=== PATIENT | female | born 1970 | race American Indian/Alaskan Native ===

== ENCOUNTER 2017-08-09 19:42 | Emergency (ER) | payer BC, OTHER ==
[2017-08-09 20:20] VITALS: O2SAT 100; BMI 30.9
[2017-08-09] MEDS ORDERED: Sodium Chloride 0.9% 1,000 ML IV STA (20:23)
--- NOTE | 2017-08-09 20:26 | ED PDOC ---
Arrival/HPI - General Chief Complaint: Back Pain Time Seen by Provider: 08/09/17 20:21 Historian: Patient, Spouse - History of Present Illness Narrative History of Present Illness (Text): 08/09/17 20:23 This 47 yo female with pmh asthma, kidney stones, s/p partial hysterectomy, presents to this ED c/o right flank pain x 4 hours. Patient also noted urinary frequency, and nausea. Patient feels her abdomen distended. Patient denies sob , cp, vomiting, diarrhea, constipation, or abnormal gait. Time/Duration: Other (see hpi) Context: Home Past Medical History - Provider Review Nursing Documentation Reviewed: Yes - Infectious Disease Hx of Infectious Diseases: None - Cardiac Hx Cardiac Disorders: No - Pulmonary Hx Respiratory Disorders: No - Neurological Hx Neurological Disorder: No - HEENT Hx HEENT Disorder: No - Renal Hx Renal Disorder: Yes Hx Kidney Stones: Yes - Endocrine/Metabolic Hx Endocrine Disorders: No - Hematological/Oncological Hx Blood Disorders: No - Integumentary Hx Dermatological Disorder: No - Musculoskeletal/Rheumatological Hx Musculoskeletal Disorders: No - Gastrointestinal Hx Gastrointestinal Disorders: No - Genitourinary/Gynecological Hx Genitourinary Disorders: No - Psychiatric Hx Psychophysiologic Disorder: No Hx Substance Use: No - Surgical History Other/Comment: Fibriods Family/Social History - Physician Review Nursing Documentation Reviewed: Yes Family/Social History: Other (noncontributory) Smoking Status: Never Smoked Hx Alcohol Use: Yes Frequency of alcohol use: Socially Hx Substance Use: No Allergies/Home Meds Allergies/Adverse Reactions: Allergies penicillin G Allergy (Verified 08/09/17 19:59) SHORTNESS OF BREATH Home Medications: Home Meds Medication Instructions Recorded Confirmed Albuterol Sulfate [Proair Hfa] 1 gm INH PRN PRN 08/09/17 08/09/17 Review of Systems - Review of Systems Constitutional: Normal. absent: Fatigue, Weight Change, Fevers Eyes: Normal ENT: Normal Respiratory: Normal Cardiovascular: Normal Gastrointestinal: Abdominal Pain (right flank pain), Nausea. absent: Vomiting Genitourinary Female: Frequency. absent: Dysuria, Hematuria, Vaginal Bleeding, Vaginal Discharge Musculoskeletal: Normal. absent: Back Pain, Neck Pain Skin: Normal. absent: Rash Neurological: Normal. absent: Headache, Dizziness, Focal Weakness, Gait Changes , Speech Changes, Facial Droop, Disequilibrium Endocrine: Normal Hemo/Lymphatic: Normal Psychiatric: Normal Physical Exam Vital Signs Temp Pulse Resp BP Pulse Ox 08/10/17 00:32 97.9 F 80 14 118/89 100 08/09/17 19:58 98.2 F 85 18 132/85 100 Temperature: Afebrile Blood Pressure: Normal Pulse: Regular Respiratory Rate: Normal Appearance: Positive for: Well-Appearing, Non-Toxic, Comfortable Pain Distress: None Mental Status: Positive for: Alert and Oriented X 3 - Systems Exam Head: Present: Atraumatic, Normocephalic Pupils: Present: PERRL Extroacular Muscles: Present: EOMI Conjunctiva: Present: Normal Mouth: Present: Moist Mucous Membranes Neck: Present: Normal Range of Motion Respiratory/Chest: Present: Clear to Auscultation, Good Air Exchange. No: Respiratory Distress, Accessory Muscle Use Cardiovascular: Present: Regular Rate and Rhythm, Normal S1, S2. No: Murmurs Abdomen: No: Tenderness, Distention, Peritoneal Signs, Rebound, Guarding Back: Present: Normal Inspection. No: CVA Tenderness, Midline Tenderness, Paraspinal Tenderness Upper Extremity: Present: Normal Inspection, Normal ROM, NORMAL PULSES, Neurovascularly Intact, Capillary Refill < 2s. No: Cyanosis, Edema Lower Extremity: Present: Normal Inspection, NORMAL PULSES, Normal ROM, Neurovascularly Intact, Capillary Refill < 2 s. No: Edema Neurological: Present: GCS=15, CN II-XII Intact, Speech Normal, Motor Func Grossly Intact, Normal Sensory Function, Normal Cerebellar Funct, Gait Normal Skin: Present: Warm, Dry, Normal Color. No: Rashes Psychiatric: Present: Alert, Oriented x 3, Normal Insight, Normal Concentration Medical Decision Making ED Course and Treatment: 08/10/17 00:03 Patient feels better. Patient is aware of CT finding, lung nodule, liver lesion , and kidney stone. Patient stated she will f/u PMD in 1-2 days. Re-evaluation Time: 00:10 Reassessment Condition: Re-examined, Improved - Lab Interpretations Lab Results: 08/09/17 20:40 08/09/17 21:10 Lab Results 08/09/17 21:51: Urine Color Yellow, Urine Appearance Cloudy, Urine pH 8.5, Ur Specific [place] 1.015, Urine Protein Trace H, Urine Glucose (UA) Negative, Urine Ketones Negative, Urine Blood Large H, Urine Nitrate Negative, Urine Bilirubin Negative, Urine Urobilinogen 0.2, Ur Leukocyte Esterase Negative, Urine RBC 25 - 30, Urine WBC 1 - 3, Ur Epithelial Cells 4 - 5, Amorphous Sediment Small 08/09/17 21:10: Sodium 145, Potassium 3.7, Chloride 108 H, Carbon Dioxide 24, Anion Gap 17, BUN 12, Creatinine 0.6 L, Est GFR ( Amer) > 60, Est GFR ( Non-Af Amer) > 60, Random Glucose 101, Calcium 9.2, Total Bilirubin 0.2, AST 21 , ALT 27, Alkaline Phosphatase 67, Total Protein 7.3, Albumin 4.1, Globulin 3.1 , Albumin/Globulin Ratio 1.3 08/09/17 20:40: WBC 13.3 H, RBC 4.66, Hgb 13.9, Hct 40.5, MCV 86.9, MCH 29.8, MCHC 34.3, RDW 13.6, Plt Count 246, MPV 11.7 H, Gran % 83.4 H, Lymph % (Auto) 12.7 L, [place] % (Auto) 3.5, Eos % (Auto) 0.2 L, Baso % (Auto) 0.2, Gran # 11.08 H , Lymph # (Auto) 1.7, [place] # (Auto) 0.5, Eos # (Auto) 0.0, Baso # (Auto) 0.02 I have reviewed the lab results: Yes Interpretation: No clinic. lab abnormalty - RAD Interpretation Narrative RAD Interpretations (Text): 08/12/17 20:04 IMPRESSION: 1. RIGHT distal ureteral calculus with [id number] hydroureteronephrosis. 2. Liver lesion, incompletely characterized. Recommend nonemergent MRI. 3. Pulmonary nodule. For low-risk patients, no follow-up is necessary. For high-risk patients (smoking history or other known risk factors) an optional CT at 12 months could be performed. 4. Incidental/non-acute findings are described above. Radiology Orders: 08/09/17 20:22 ABD & PELVIS W/O PO OR IV CONT [CT] Stat - Medication Orders Current Medication Orders: Discontinued Medications Sodium Chloride (Sodium Chloride 0.9%) 1,000 mls @ 999 mls/hr IV .Q1H1M STA Stop: 08/09/17 21:23 Last Admin: 08/09/17 20:53 Dose: 999 mls/hr eMAR Start Stop Document 08/09/17 20:53 CNR (Rec: 08/09/17 20:53 CNR [id number]) Intravenous Solution Start Date 08/09/17 Start Time 20:53 Ketorolac Tromethamine (Toradol) 15 mg IVP STAT STA Stop: 08/09/17 20:23 Last Admin: 08/09/17 20:59 Dose: 15 mg MAR Pain Assessment Document 08/09/17 20:59 CNR (Rec: 08/09/17 21:00 CNR [id number]) Pain Reassessment Is this a pain reassessment? Yes IVP Administration Document 08/09/17 20:59 CNR (Rec: 08/09/17 21:00 CNR [id number]) Charges for Administration # of IVP Administrations 1 Ondansetron HCl (Zofran Inj) 4 mg IVP STAT STA Stop: 08/09/17 20:24 Last Admin: 08/09/17 21:00 Dose: 4 mg IVP Administration Document 08/09/17 21:00 CNR (Rec: 08/09/17 21:00 CNR [id number]) Charges for Administration # of IVP Administrations 1 Tamsulosin HCl (Flomax) 0.4 mg PO STAT STA Stop: 08/10/17 00:07 Last Admin: 08/10/17 00:29 Dose: 0.4 mg Disposition/Present on Arrival - Present on Arrival Any Indicators Present on Arrival: No History of DVT/PE: No History of Uncontrolled Diabetes: No Urinary Catheter: No History of Decub. Ulcer: No History Surgical Site Infection Following: None - Disposition Have Diagnosis and Disposition been Completed?: Yes Diagnosis: Lesion of liver, Ureterolithiasis, Flank pain, Lung nodule Disposition: HOME/ ROUTINE Disposition Time: 00:10 Patient Plan: Discharge Condition: GOOD Discharge Instructions (ExitCare): Kidney Stones in Adults Additional Instructions: Call private doctor for follow up visit in 1-2 days. Take medication as instructed with food. review with your doctor CT scan result which describes a liver lesion, and lung nodule. Call private urologist for kidney stone. Return to emergency if pain worsen. Prescriptions: Ibuprofen [Motrin] 600 mg PO Q8 PRN #20 tab PRN Reason: Pain, Severe (8-10) oxyCODONE/Acetaminophen [Percocet 5/325 mg Tab] 1 ea PO Q4H PRN #10 tab PRN Reason: Pain, Severe (8-10) Tamsulosin HCl [Flomax] 0.4 mg PO DAILY #10 cap.er.24h Referrals: Debbie Levin MD [Primary Care Provider] - Follow up with primary Edwige Gómez MD [Staff Provider] - Follow up with primary Forms: [facility] (Romanian), WORK NOTE
[2017-08-09 20:58] LABS: BASO # 0.02 K/mm3 (0.0-2.0); BASO % 0.2 % (0.0-3.0); EOS % 0.2 % (1.5-5.0); GRAN # 11.08 (1.4-6.5); GRAN % 83.4 % (50.0-68.0); HEMOGLOBIN 13.9 g/dL (12.0-16.0); LYMPH # 1.7 (1.2-3.4); LYMPH % 12.7 % (22.0-35.0); MEAN CELL VOLUME 86.9 fl (80.0-105.0); MEAN CORPUSCULAR HEMOGLOBIN 29.8 pg (25.0-35.0); MEAN CORPUSCULAR HGB CONC 34.3 g/dl (31.0-37.0); MEAN PLATELET VOLUME 11.7 fl (7.0-11.0); MONO # 0.5 (0.1-0.6); MONO % 3.5 % (1.0-6.0); RBC 4.66 10^6/uL (3.5-6.1); RED CELL DISTRIBUTION WIDTH 13.6 % (11.5-14.5); WHITE BLOOD COUNT 13.3 10^3/ul (4.5-11.0)
[2017-08-09 21:32] LABS: ALB/GLOB RATIO 1.3 (1.1-1.8); ALBUMIN 4.1 g/dL (3.0-4.8); ALT/SGPT 27 U/L (7-56); AST/SGOT 21 U/L (14-36); BLOOD UREA NITROGEN 12 mg/dL (7-21); CALCIUM 9.2 mg/dL (8.4-10.5); GFR AFRICAN-AMERICAN > 60; GFR NON-AFRICAN AMERICAN > 60
[2017-08-09 22:07] LABS: PH,URINE 8.5 (4.7-8.0); URINE BILIRUBIN NEGATIVE (NEGATIVE); URINE BLOOD LARGE (NEGATIVE); URINE GLUCOSE (UA) NEGATIVE (NEGATIVE); URINE LEUKOCYTE ESTERASE NEGATIVE Leu/uL (NEGATIVE); URINE PROTEIN TRACE mg/dL (<30 mg/dL); URINE UROBILINOGEN 0.2 E.U./dL (<1 E.U./dL)
[2017-08-09 22:14] LABS: URINE APPEARANCE CLOUDY (CLEAR); URINE COLOR YELLOW (YELLOW)
[2017-08-09 22:26] LABS: URINE AMORPHOUS SEDIMENT SMALL; URINE RBC 25 - 30 /hpf (0-2)
--- NOTE | 2017-08-09 23:18 | CT ---
EXAM: CT Abdomen and Pelvis Without Intravenous Contrast CLINICAL HISTORY: 47 years old, female; Pain; Abdominal pain; Flank; Right; Additional info: Right flank pain TECHNIQUE: Axial computed tomography images of the abdomen and pelvis without intravenous contrast. All CT scans at this facility use one or more dose reduction techniques, viz.: automated exposure control; ma/kV adjustment per patient size (including targeted exams where dose is matched to indication; i.e. head); or iterative reconstruction technique. Coronal and sagittal reformatted images were created and reviewed. COMPARISON: No relevant prior studies available. FINDINGS: Limitations: Lack of intravenous contrast. Lung bases: 0.4 cm RIGHT lower lobe nodule. Mediastinum: Probable small hiatal hernia. ABDOMEN: Liver: 2.1 x 2.4 x 3.6 cm low-attenuation lesion, indeterminate by CT criteria. Few low-attenuation lesions, up to 0.6 cm, with benign imaging features. Gallbladder and bile ducts: No calcified stones. No ductal dilation. Pancreas: Unremarkable. No ductal dilation. Spleen: No splenomegaly. Adrenals: No mass. Kidneys and ureters: Minimal stranding about RIGHT kidney. No renal calculi. [id number] pelvocaliectasis of RIGHT kidney. Mildly dilated RIGHT ureter. 0.3 x 0.2 x 0.3 cm calculus within RIGHT distal ureter near level of iliac vessels. Stomach and bowel: No definite mural thickening. No obstruction. PELVIS: Appendix: Normal caliber. No inflammation. Bladder: Unremarkable. No stones. Reproductive: Hysterectomy. ABDOMEN and PELVIS: Intraperitoneal space: No significant fluid collection. No free air. Bones/joints: See above. Soft tissues: Tiny umbilical hernia containing fat. Vasculature: See above. Lymph nodes: No pathologically enlarged lymph nodes. IMPRESSION: 1. RIGHT distal ureteral calculus with [id number] hydroureteronephrosis. 2. Liver lesion, incompletely characterized. Recommend nonemergent MRI. 3. Pulmonary nodule. For low-risk patients, no follow-up is necessary. For high-risk patients (smoking history or other known risk factors) an optional CT at 12 months could be performed. 4. Incidental/non-acute findings are described above.
[2017-08-10 03:34] VITALS: BP 118/89; PULSE 80; RESP 14; TEMP 97.9
== END 2017-08-10 00:32 | disposition home or self-care (01) ==
LOC: ED 19:42
DX: N20.1 Calculus of ureter (principal); K76.9 Liver disease, unspecified; R10.9 Unspecified abdominal pain; Z87.442 Personal history of urinary calculi
CPT/HCPCS: 74176; 80053; 81001; 85025; 96374; 96375; 99283; J1885; J2405; J7040